=== PATIENT | female | born 1980 | race Native Hawaiian/Other Pacific Islander ===

== ENCOUNTER 2017-01-19 14:26 | Emergency (ER) | payer OTHER ==
[2017-01-19 14:50] VITALS: RESP 18
[2017-01-19] MEDS ORDERED: Sodium Chloride 0.9% 1,000 ML IV ONE (15:00)
--- NOTE | 2017-01-19 15:08 | C.PDOC ---
Time Seen by Provider: 01/19/17 14:51 Chief Complaint (Nursing): Female Genitourinary Past Medical History Vital Signs: Last Vital Signs Temp 98.2 F 01/19/17 14:46 Pulse 73 01/19/17 14:46 Resp 18 01/19/17 14:46 BP 118/78 01/19/17 14:46 Pulse Ox 96 01/19/17 14:46 - Social History Hx Alcohol Use: No Hx Substance Use: No - Immunization History Hx Tetanus Toxoid Vaccination: No Hx Influenza Vaccination: No Hx Pneumococcal Vaccination: No Physical Exam - Physical Exam Appears: Non-toxic, No Acute Distress Skin: Warm, Dry Head: Atraumatic, Normacephalic, No Tenderness Eye(s): bilateral: Normal Inspection, PERRL, EOMI Oral Mucosa: Moist Neck: Supple Cardiovascular: Rhythm Regular, No Murmur Respiratory: No Rales, No Rhonchi, No Wheezing, Other (clear to auscultation bilaterally ) Gastrointestinal/Abdominal: Bowel Sounds (good bowel sounds ), Soft, No Tenderness, No Distention, No Guarding, No Rebound ED Course And Treatment O2 Sat by Pulse Oximetry: 96 (RA) Disposition - Disposition - 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 - Scribe Statement The provider has reviewed the documentation as recorded by the Scribe Priyanka Bragg All medical record entries made by the Scribann marie were at my direction and personally dictated by me. I have reviewed the chart and agree that the record accurately reflects my personal performance of the history, physical exam, medical decision making, and the department course for this patient. I have also personally directed, reviewed, and agree with the discharge instructions and disposition.
[2017-01-19] MEDS ORDERED: Sodium Chloride 0.9% 1,000 ML ONE (15:25)
[2017-01-19 15:47] LABS: BASO # 0.1 K/uL (0.0-0.2); BASO % 0.8 % (0.0-2.0); EOS # 0.1 K/uL (0.0-0.7); EOS % 1.5 % (0.0-4.0); HEMATOCRIT 38.8 % (34.0-47.0); LYMPH # 2.5 K/uL (1.0-4.3); LYMPH % 38.9 % (20.0-40.0); MEAN CELL VOLUME 78.1 fL (81.0-99.0); MEAN CORPUSCULAR HEMOGLOBIN 27.1 pg (27.0-31.0); MEAN CORPUSCULAR HGB CONC 34.8 g/dL (33.0-37.0); MEAN PLATELET VOLUME 7.5 fL (7.2-11.7); MONO # 0.5 K/uL (0.0-0.8); MONO % 7.2 % (0.0-10.0); RED CELL DISTRIBUTION WIDTH 13.4 % (11.5-14.5); WHITE BLOOD COUNT 6.3 K/uL (4.8-10.8)
--- NOTE | 2017-01-19 16:00 | C.PDOC ---
History Of Present Illness 36 year old female with no significant PMHx or PSHx presents to the ED with complaints of vaginal bleeding for four months that has been worsening since yesterday. She notes she has used 6 pads in less than one day and feels as though she has very little energy. Patient reports her usual menstruation is 4- 5 days long. She states he last visit to a pharmaceutical development technician was "years ago." Patient denies use of control, nausea, vomiting, fever, chills, abdominal pain, diarrhea, or other complaints at this time. Time Seen by Provider: 01/19/17 14:51 Chief Complaint (Nursing): Female Genitourinary History Per: Patient History/Exam Limitations: no limitations Onset/Duration Of Symptoms: Persistent (4 months ), Worse Since (yesterday) Current Symptoms Are (Timing): Still Present Associated Symptoms: denies: Fever, Chills, Nausea, Vomiting, Diarrhea, Back Pain, Urinary Symptoms Alleviating Factors: None Recent travel outside of the [place]: No Abnormal Vaginal Bleeding: Yes : 0 Para: 0 Miscarriage: 0 Past Medical History Reviewed: Historical Data, Nursing Documentation, Vital Signs Vital Signs: Last Vital Signs Temp 98.2 F 01/19/17 14:46 Pulse 82 01/19/17 16:12 Resp 18 01/19/17 14:46 BP 123/82 01/19/17 16:12 Pulse Ox 96 01/19/17 16:02 Family History: States: Unknown Family Hx - Social History Hx Alcohol Use: No Hx Substance Use: No - Immunization History Hx Tetanus Toxoid Vaccination: No Hx Influenza Vaccination: No Hx Pneumococcal Vaccination: No Review Of Systems Constitutional: Negative for: Fever, Chills Cardiovascular: Negative for: Chest Pain Respiratory: Negative for: Shortness of Breath Gastrointestinal: Negative for: Nausea, Vomiting, Abdominal Pain, Diarrhea Genitourinary: Positive for: Vaginal Bleeding. Negative for: Dysuria, Frequency , Hematuria Musculoskeletal: Negative for: Back Pain Physical Exam - Physical Exam Appears: Non-toxic, No Acute Distress Skin: Warm, Dry Head: Atraumatic, Normacephalic Eye(s): bilateral: Normal Inspection, PERRL, EOMI Oral Mucosa: Moist Neck: Supple Cardiovascular: Rhythm Regular, No Murmur Respiratory: No Rales, No Rhonchi, No Wheezing, Other (clear to auscultation bilaterally ) Gastrointestinal/Abdominal: Soft, No Tenderness, No Distention, No Guarding, No Rebound Extremity: Normal ROM, No Tenderness Neurological/Psych: Oriented x3 ED Course And Treatment - Laboratory Results Result Diagrams: 01/19/17 15:39 01/19/17 15:39 Lab Interpretation: No Acute Changes O2 Sat by Pulse Oximetry: 96 (RA) Progress Note: Blood work and UA were ordered. Patient was given IV fluids. Medical Decision Making Medical Decision Making: Impression: vaginal bleeding: Labs reviewed and unremarkable, normal H/H. Patient resting comfortable in no distress, vital signs are stable. Discussed results with patient. advise she follow up with feed weigher or clinic for further evaluation. Disposition Counseled Patient/Family Regarding: Diagnosis, Need For Followup - Disposition [facility] [Outside] Disposition: HOME/ ROUTINE Disposition Time: 16:30 Condition: STABLE Additional Instructions: Your labs are normal Please follow up with pharmaceutical development technician or clinic for further evaluation Instructions: Menorrhagia (ED) Forms: [employer] (Icelandic) - POA Present On Arrival: None - Clinical Impression Clinical Impression: Menorrhagia - PA / SCABBLER / Resident Statement MD/DO has reviewed & agrees with the documentation as recorded. - Scribe Statement The provider has reviewed the documentation as recorded by the Adeleibann marie Bragg All medical record entries made by the John were at my direction and personally dictated by me. I have reviewed the chart and agree that the record accurately reflects my personal performance of the history, physical exam, medical decision making, and the department course for this patient. I have also personally directed, reviewed, and agree with the discharge instructions and disposition.
[2017-01-19 16:02] LABS: CHLORIDE 100 mmol/L (98-107); SODIUM 134 mmol/L (132-148)
[2017-01-19 16:04] LABS: GFR AFRICAN-AMERICAN > 60; RBC URINE 4786 /hpf (0-3); URINE BILIRUBIN NEGATIVE (NEGATIVE); URINE BLOOD 3+ (NEGATIVE); URINE GLUCOSE (UA) NORMAL (Normal); URINE KETONE TRACE mg/dL (NEGATIVE); URINE LEUKOCYTE ESTERASE TRACE Leu/uL (Negative); URINE PROTEIN 2+ mg/dL (NEGATIVE); URINE UROBILINOGEN NORMAL mg/dL (0.2-1.0); WBC URINE 5 /hpf (0-5)
[2017-01-19 16:05] LABS: ALB/GLOB RATIO 1.5 (1.0-2.1); ALKALINE PHOSPHATASE 75 U/L (38-126); ALT/SGPT 31 U/L (9-52); AST/SGOT 26 U/L (14-36); BILIRUBIN,TOTAL 0.9 mg/dL (0.2-1.3); BLOOD UREA NITROGEN 8 mg/dL (7-17); CARBON DIOXIDE 23 mmol/L (22-30); GLUCOSE,RANDOM 84 mg/dL (65-105); TOTAL PROTEIN 7.8 g/dL (6.3-8.3); URINE COLOR RED (YELLOW)
[2017-01-19 16:06] LABS: CALCIUM 8.9 mg/dl (8.6-10.4)
[2017-01-19 16:20] LABS: POTASSIUM 4.4 mmol/L (3.6-5.2)
[2017-01-19 16:45] VITALS: BP 121/80
[2017-01-19 17:49] VITALS: PULSE 67; TEMP 98.7
[2017-01-20 13:49] VITALS: O2SAT 96
== END 2017-01-19 17:20 | disposition home or self-care (01) ==
LOC: C.ER 14:26
DX: N92.0 Excessive and frequent menstruation with regular cycle (principal)
CPT/HCPCS: 36415; 80053; 81001; 84703; 85025; 85610; 85730; 96360; 99285; J7040

== ENCOUNTER 2017-06-11 21:30 | Emergency (ER) | payer OTHER ==
[2017-06-11 22:04] VITALS: BP 125/80; PULSE 70; RESP 14; TEMP 97.8; O2SAT 99
--- NOTE | 2017-06-11 22:25 | C.PDOC ---
History Of Present Illness 36 years old female presents to ED for complaints of an itchy rash all over her body that began last week. Patient reports that she believes rash first started on her arms then started spreading everywhere. Patient also states the rash is worse on her back and is extremely itchy. She states taking over the counter antihistamines allerga, zyrtec, benadryl and using topical calamine, hydrocortisone with no relief. Patient also reports the itching causes her not to sleep at night. She denies fever, anyone else with similar rash, or any other physical complaints. Time Seen by Provider: 06/11/17 22:06 Chief Complaint (Nursing): Allergic Reaction History Per: Patient History/Exam Limitations: no limitations Onset/Duration Of Symptoms: Days (7) Current Symptoms Are (Timing): Still Present Possible Cause: Unknown Associated Symptoms: Skin Rash Home/EMS Treatment: Benadryl, Other (over the counter antihistamines allerga, zyrtec, benadryl, calamine, hydrocortisone) Recent travel outside of the [place]: No Past Medical History Reviewed: Historical Data, Nursing Documentation, Vital Signs Vital Signs: Last Vital Signs Temp 97.8 F 06/11/17 21:57 Pulse 70 06/11/17 21:57 Resp 14 06/11/17 21:57 BP 125/80 06/11/17 21:57 Pulse Ox 99 06/11/17 23:28 - Medical History PMH: No Chronic Diseases Surgical History: No Surg Hx Family History: States: No Known Family Hx - Social History Hx Alcohol Use: No Hx Substance Use: No - Immunization History Hx Tetanus Toxoid Vaccination: No Hx Influenza Vaccination: No Hx Pneumococcal Vaccination: No Review Of Systems Constitutional: Negative for: Fever, Chills Respiratory: Negative for: Cough Gastrointestinal: Negative for: Nausea, Vomiting, Diarrhea Skin: Positive for: Rash (all over body) Neurological: Negative for: Weakness, Numbness Physical Exam - Physical Exam Appears: Non-toxic, No Acute Distress Skin: Rash (erythematous papular rash across body; fine papular rash worse on posterior neck with scabbing and scaliness; Rash does not involve palms of hands or soles of feet), Other (No burrows) Head: Atraumatic, Normacephalic Eye(s): bilateral: Normal Inspection, EOMI Oral Mucosa: Moist Neck: Supple Chest: Symmetrical, No Tenderness Cardiovascular: Rhythm Regular Respiratory: Normal Breath Sounds, No Decreased Breath Sounds, No Rales, No Rhonchi, No Wheezing Back: No Paraspinal Tenderness Extremity: Normal ROM, No Tenderness, No Deformity, No Swelling Neurological/Psych: Oriented x3, Normal Speech ED Course And Treatment O2 Sat by Pulse Oximetry: 99 (RA) Pulse Ox Interpretation: Normal Medical Decision Making Medical Decision Making: Rash clinically suspect scabies. Gave prescription for Elimite and verbal as well as written instructions on how to use. Patient expressed understanding. Disposition Counseled Patient/Family Regarding: Diagnosis, Need For Followup, Rx Given - Disposition Referrals: Carrie Burton MD [Staff Provider] - Disposition: HOME/ ROUTINE Disposition Time: 22:40 Condition: GOOD Additional Instructions: Apply a thin layer of cream all over your skin from your neck down to your toes (including the soles of your feet). Be careful to apply cream in all skins folds , such as between your toes and fingers or around your waist or buttocks. Leave the cream on your skin for 8-14 hours. After 8-14 hours have passed, wash off the cream by bathing or showering. Your skin may be itchy after treatment with permethrin cream. This does not mean your treatment did not work. 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 - Scribe Statement The provider has reviewed the documentation as recorded by the John Calderon All medical record entries made by the Adeleibann marie were at my direction and personally dictated by me. I have reviewed the chart and agree that the record accurately reflects my personal performance of the history, physical exam, medical decision making, and the department course for this patient. I have also personally directed, reviewed, and agree with the discharge instructions and disposition.
== END 2017-06-11 22:42 | disposition home or self-care (01) ==
LOC: C.ER 21:30
DX: B86 Scabies (principal)

== ENCOUNTER 2017-06-16 17:02 | Emergency (ER) | payer OTHER ==
--- NOTE | 2017-06-16 17:42 | C.PDOC ---
History Of Present Illness 36 y/o female presents to the ER complaining of generalized pruritis and rash which has been present for the past 2 weeks. Patient states that she has been using Benadryl without improvement. The rash is becoming worse. Patient denies recent travel and sick contacts. Time Seen by Provider: 06/16/17 17:28 Chief Complaint (Nursing): Abnormal Skin Integrity History Per: Patient History/Exam Limitations: no limitations Onset/Duration Of Symptoms: Days Current Symptoms Are (Timing): Still Present Quality Of Symptoms: Itching Severity: Moderate Past Medical History Reviewed: Historical Data, Nursing Documentation, Vital Signs Vital Signs: Last Vital Signs Temp 98.5 F 06/16/17 17:21 Pulse 58 L 06/16/17 17:21 Resp 20 06/16/17 17:21 BP 123/86 06/16/17 17:21 Pulse Ox 95 06/16/17 20:01 - Medical History PMH: No Chronic Diseases Surgical History: No Surg Hx Family History: States: No Known Family Hx - Social History Hx Alcohol Use: No Hx Substance Use: No - Immunization History Hx Tetanus Toxoid Vaccination: No Hx Influenza Vaccination: No Hx Pneumococcal Vaccination: No Review Of Systems Except As Marked, All Systems Reviewed And Found Negative. Constitutional: Negative for: Fever, Chills Skin: Positive for: Rash Physical Exam - Physical Exam Appears: Non-toxic, No Acute Distress Skin: Warm, Rash (generalized rash with multiple scratch stephenson mainly in the trunk and extremities) Head: Atraumatic, Normacephalic, Other (no rash) Eye(s): bilateral: Normal Inspection Nose: Normal Oral Mucosa: Moist Neck: Supple Chest: Symmetrical Cardiovascular: Rhythm Regular Respiratory: Normal Breath Sounds, No Rales, No Rhonchi, No Wheezing Extremity: Normal ROM Neurological/Psych: Oriented x3, Normal Speech ED Course And Treatment O2 Sat by Pulse Oximetry: 95 (RA) Pulse Ox Interpretation: Normal Progress Note: Symptoms appear to be consistent with Scabies. Patient has been discharged with prescrption for Atarax and Permethrin. Patient has been told to follow up with reservationist in 1-2 days. Disposition - Disposition Disposition: HOME/ ROUTINE Disposition Time: 17:38 Condition: STABLE Additional Instructions: Follow up with reservationist within 1-2 days. Return to ED if feel worse. Prescriptions: hydrOXYzine HCl [Atarax] 25 mg PO Q6H #30 tab Permethrin 5% [Permethrin 5% Cream] 1 applic TOP ONCE #1 tube Instructions: Scabies (DC) Forms: [employer] (Kiswahili) - Clinical Impression Clinical Impression: Skin rash - PA / FIRST LEVELER / Resident Statement MD/DO has reviewed & agrees with the documentation as recorded. - Scribe Statement The provider has reviewed the documentation as recorded by the Scribe Parris Palafox Provider Attestation All medical record entries made by the Adeleibe were at my direction and personally dictated by me. I have reviewed the chart and agree that the record accurately reflects my personal performance of the history, physical exam, medical decision making, and the department course for this patient. I have also personally directed, reviewed, and agree with the discharge instructions and disposition.
[2017-06-17 11:25] VITALS: BMI 29.6
[2017-06-17 11:26] VITALS: BP 123/86; PULSE 58; RESP 20; TEMP 98.5; O2SAT 95
== END 2017-06-16 17:52 | disposition home or self-care (01) ==
LOC: C.ER 17:02
DX: R21 Rash and other nonspecific skin eruption (principal)